=== PATIENT | male | born 1950 | race Caucasian/White ===

== ENCOUNTER 2020-07-15 05:15 | Observation (INO) ==
--- NOTE | 2020-06-12 10:52 | PAT Medication Instructions ---
Medication Instructions Date of Service June 12, 2020 Home Medications bupropion HCl 150 mg PO QAM hydrochlorothiazide 50 mg PO QAM ibuprofen 200 mg PO BID PRN levothyroxine 75 mcg PO QAM multivitamin 1 tab PO QAM omega-3 fatty acids [[place] 3 Fish Oil] 1,000 mg PO QAM simvastatin 40 mg PO HS tramadol 50 mg PO DAILY PRN vitamin B complex 1 tab PO QAM ASK your surgeon for instructions ibuprofen 200 mg PO BID PRN STOP taking 2 weeks before surgery (or as soon as possible if surgery is within 2 weeks) omega-3 fatty acids [[place] 3 Fish Oil] 1,000 mg PO QAM DO NOT take the morning of surgery hydrochlorothiazide 50 mg PO QAM multivitamin 1 tab PO QAM vitamin B complex 1 tab PO QAM Take morning of surgery With a small sip of water, OTHERWISE NOTHING TO EAT OR DRINK AFTER MIDNIGHT: bupropion HCl 150 mg PO QAM levothyroxine 75 mcg PO QAM tramadol 50 mg PO DAILY PRN (okay to take up to 4 hours prior to surgery if needed) Take evening before surgery simvastatin 40 mg PO HS tramadol 50 mg PO DAILY PRN (if needed) Other Notes If you have any questions please call us at [phone] or [phone] or [phone] or [phone]
--- NOTE | 2020-06-13 09:13 | Anesthesiology Consultation ---
Date of Service June 13, 2020 Assessment & Plan (1) Encounter for pre-operative examination: COVID screening: Per assessment on 06/13: Travel screen- Patient lived in [place] 04/2020-05/2020. Return from travel 06/02/20. No further travel planned prior to surgery. No known COVID-19 positive contacts or current COVID-19 related symptoms. Patient received first vaccine 06/04 (second scheduled 07/02). Surgeon arranging preop COVID testing (scheduled 07/08; [facility]). Awaiting results. Chart Review Chart Review: Acceptable Risk for Surgery and Patient seen in Pre Admission Testing Teaching & Discussion Pre-Anesthesia Teaching/Discussion Notes: Instructed NPO after midnight before surgery,except medications with 15 cc of water. Medication instructions provided according to the PAT guidelines. History Surgery Operation Date: 07/15/20 08:35 Proposed Procedures p Right Total Knee Arthroplasty - James Chavis DO Height/Weight Height: 5 ft 10 in Weight: 117.7 kg Allergies Allergy/AdvReac Type Severity Reaction Status Date / Time No Known Allergies Allergy Verified 06/11/20 15:06 Medications Home Medications Medication Instructions Recorded Confirmed Last Taken bupropion HCl 150 mg PO QAM 06/11/20 06/11/20 Unknown hydrochlorothiazide 12.5 mg PO QAM 06/11/20 06/13/20 Unknown ibuprofen 200 mg PO BID PRN 06/11/20 06/11/20 Unknown levothyroxine 75 mcg PO QAM 06/11/20 06/11/20 Unknown multivitamin 1 tab PO QAM 06/11/20 06/11/20 Unknown omega-3 fatty acids [[place] 3 Fish 1,000 mg PO QAM 06/11/20 06/11/20 Unknown Oil] simvastatin 40 mg PO HS 06/11/20 06/11/20 Unknown tramadol 50 mg PO DAILY PRN 06/11/20 06/11/20 Unknown vitamin B complex 1 tab PO QAM 06/11/20 06/11/20 Unknown Past Medical History Medical History Chronic back pain Degenerative disc disease Depression Edema of lower extremity on HCTZ Hypertension "borderline" > monitoring Hypothyroidism Obesity Osteoarthritis Pulmonary embolism B/L PE (~2012) s/p long travel > short-term coumadin, no problems since Sleep apnea CPAP Spondylolisthesis no current treatment Exercise / Class Metabolic Activity II 4-5 Yardwork/Stairs/Walk up hill Past Family History Family History Grandmother (Maternal) Family hx of colon cancer Other No family history of adverse response to anesthesia Past Surgical History Surgical History History of colonoscopy History of repair of rotator cuff R/L History of tonsillectomy S/P right knee arthroscopy Past Anesthesia History No Hx of Anesthesia Complications and No Family Hx of Anesthesia Complications History of PONV No Hx of PONV and Hx of Motion Sickness (very rare) Social History Smoking Status: Former smoker tobacco type: cigarettes Do You Dip or Chew Tobacco: No Smoking End Date: Quit 2012 Hx Alcohol Use: Yes Alcohol type: beer, wine and hard liquor alcohol intake frequency: a few times a week Hx Substance Use: Yes (CBD oil daily) Review of Systems Patient denies chest pain, shortness of breath, dyspnea on exertion, joint pain, reflux, cough, wheezing, palpitations. Physical Exam Vital Signs VITALS BP 124/76 P 53 TEMP 98.4 SP02 96%RA RESP 16 PHYSICAL Full neck and c-spine range of motion. Full TMJ range of motion. TMD 3 finger breaths Mallampati Score 3 Dentition: intact, +crowns (several) Lungs: clear throughout to auscultation Cardiac: regular rate and rhythm, no murmurs noted Spine: normal Carotid arteries: negative bruit Extremities: no edema Trimmed milligan Testing Laboratory Results 06/13/20 09:45 06/13/20 09:45 PT 10.3 Seconds (9.0-12.0) 06/13/20 09:45 INR 1.0 (0.9-1.1) 06/13/20 09:45 APTT 25.2 Seconds (21.0-31.0) 06/13/20 09:45 Hemoglobin A1c 6.4 % (4.5-5.6) H 06/13/20 09:45 Urine Color Yellow 06/13/20 09:45 Urine Appearance Clear (Clear) 06/13/20 09:45 Urine pH 5.0 (4.5-7.5) 06/13/20 09:45 Ur Specific [place] 1.019 (1.000-1.030) 06/13/20 09:45 Urine Protein Negative (Negative) 06/13/20 09:45 Urine Glucose (UA) Negative (Negative) 06/13/20 09:45 Urine Ketones Negative (Negative) 06/13/20 09:45 Urine Nitrite Negative (Negative) 06/13/20 09:45 Ur Leukocyte Esterase Negative (Negative) 06/13/20 09:45 Blood Type A Positive 06/13/20 09:45 Antibody Screen NEGATIVE 06/13/20 09:45 Electrocardiogram Date: 09/18/19 SB at 53bpm. NS TWA. Chest X-Ray Date: 06/13/20 FINDINGS: Cardiomediastinal and hilar silhouettes are within normal limits. No pneumothorax, pleural effusion, airspace consolidation or overt pulmonary edema. Mild right hemidiaphragmatic elevation. Bones of the chest appear grossly intact. IMPRESSION: No acute process.
--- NOTE | 2020-06-13 10:33 | XRay Report ---
XR chest Pre-admission PA/Lat HISTORY: 70 years-old Male pat preoperative exam. No acute chest complaints COMPARISON: None TECHNIQUE: PA and lateral views of the chest FINDINGS: Cardiomediastinal and hilar silhouettes are within normal limits. No pneumothorax, pleural effusion, airspace consolidation or overt pulmonary edema. Mild right hemidiaphragmatic elevation. Bones of the chest appear grossly intact. IMPRESSION: No acute process. ACT 112: Negative or not required by law. The above report was generated using voice recognition software. It may contain grammatical, syntax o r spelling errors. Electronically signed by: Leo Palomino M.D. 06/13/2020 10:31 AM
[2020-06-13 12:50] LABS: Basophils # (auto) 0.03 K/uL (0-0.2); Basophils % (auto) 0.5 %; Eosinophils # (auto) 0.12 K/uL (0-0.5); Eosinophils % (auto) 1.9 %; Hematocrit (blood only) 48.2 % (42-52); Hemoglobin 17.1 g/dL (14.0-18.0); Immature Granulocytes # (auto) 0.02 K/uL (0.00-0.02); Immature Granulocytes % (auto) 0.3 %; Lymphocytes # (auto) 2.53 K/uL (1.2-3.4); Lymphocytes % (auto) 40.2 %; Mean Corpuscular Hemoglobin 32.3 pg (25-34); Mean Corpuscular Hgb Conc 35.5 g/dL (32-36); Mean Corpuscular Volume 91.1 fL (80-100); Mean Platelet Volume 8.9 fL (7.4-10.4); Monocytes # (auto) 0.98 K/uL (0.11-0.59); Monocytes % (auto) 15.6 %; Neutrophils # (auto) 2.61 K/uL (1.4-6.5); Neutrophils % (auto) 41.5 %; Platelet Count 266 K/uL (130-400); RDW Coefficient of Variation 13.3 % (11.5-14.5); RDW Standard Deviation 44.3 fL (36.4-46.3); Red Blood Count 5.29 M/uL (4.7-6.1); White Blood Count 6.29 K/uL (4.8-10.8)
[2020-06-13 12:52] LABS: Appearance Urine Clear (Clear); Bilirubin Urine Negative (Negative); Blood Urine Negative (Negative); Color Urine Yellow; Glucose Urine UA Negative (Negative); Ketones Urine Negative (Negative); Leukocyte Esterase Urine Negative (Negative); Nitrite Urine Negative (Negative); Protein Urine Negative (Negative); Specific Gravity Urine 1.019 (1.000-1.030); Urobilinogen Urine Negative (Negative)
[2020-06-13 13:02] LABS: Partial Thromboplastin Time 25.2 Seconds (21.0-31.0); Prothrombin Time 10.3 Seconds (9.0-12.0)
[2020-06-13 13:10] LABS: Estimated Average Glucose 137 mg/dl; Hemoglobin A1C 6.4 % (4.5-5.6)
[2020-06-13 14:47] LABS: BUN Creatinine Ratio 13.5 (10-20); Creatinine Clr Calc Pharmacy 78.3 ml/min; Est GFR (African American) 74.6; Est GFR (Non-African American) 64.3
--- NOTE | 2020-06-30 08:22 | History & Physical Report ---
Date of Service June 30, 2020 date of surgery: 07/15/20 Procedure: Right Total Knee Arthroplasty Assessment & Plan (1) Arthritis of right knee: Further care discussed with patient and at this point in time has failed conservative measures and would like to proceed with a Right total knee r eplacement. Plan on discharge will be home with home health physical therapy. DVT prophalaxis with TEDs, SCDs and will also place on Xarelto x 1 month post op, has h/o bilateral PE in the past. Patient will have follow up appointment in our office two weeks post op for staple/suture removal and re-evaluation. Patient otherwise has no other questions or concerns. The risks and benefits have been discussed including, but not limited to, risk of infection, nerve injury, stiffness, loss of motion, failure to improve, etc. Reasonable outcomes and options of treatment were discussed. An explanation of appropriate alternatives to the procedure that may be advantageous were discussed and their risks and benefits, as well as the risks and benefits of not proceeding with treatment. I offered to answer any additional inquiries concerning the treatment involved. All the patient's questions were answered. The patient is agreeable, understanding of the treatment plan and alternatives, and wishes to proceed with the treatment plan. History of Present Illness Chief Complaint: Right knee pain Primary Care Provider: NO PCP Mr Grijalva is a 70 year old male who complains of right knee pain, presents for pre-op evaluation prior to a right total knee replacement by dr Chavis at [facility]. He complains of pain, decreased range of motion, instability and stiffness in his right knee. he states that the symptoms have been chronic and non- traumatic and states that the symptoms are moderate-severe. His pain is described as aching, sharp and throbbing. His symptoms are aggravated by ascending stairs, daily activities, first steps while awake walking. Prior NSAIDs include Aleve and Motrin, has also used Tramadol for pain relief. Nick underwent prior right knee scope, in 2016 he underwent Right knee arthroscopy with partial lateral meniscectomy, Chondroplasty lateral femoral condyle lateral tibial plateau patellofemoral. Allergies Allergy/AdvReac Type Severity Reaction Status Date / Time No Known Allergies Allergy Verified 06/11/20 15:06 Home Medications Medication Instructions Recorded Confirmed Type bupropion HCl 150 mg PO QAM 06/11/20 06/11/20 History hydrochlorothiazide 12.5 mg PO QAM 06/11/20 06/13/20 History ibuprofen 200 mg PO BID PRN 06/11/20 06/11/20 History levothyroxine 75 mcg PO QAM 06/11/20 06/11/20 History multivitamin 1 tab PO QAM 06/11/20 06/11/20 History omega-3 fatty acids [[place] 3 Fish 1,000 mg PO QAM 06/11/20 06/11/20 History Oil] simvastatin 40 mg PO HS 06/11/20 06/11/20 History tramadol 50 mg PO DAILY PRN 06/11/20 06/11/20 History vitamin B complex 1 tab PO QAM 06/11/20 06/11/20 History Past Med/Surg History Medical History Chronic back pain Degenerative disc disease Depression Edema of lower extremity on HCTZ Hypertension "borderline" > monitoring Hypothyroidism Obesity Osteoarthritis Pulmonary embolism B/L PE (~2012) s/p long travel > short-term coumadin, no problems since Sleep apnea CPAP Spondylolisthesis no current treatment Surgical History History of colonoscopy History of repair of rotator cuff R/L History of tonsillectomy S/P right knee arthroscopy Family History Grandmother (Maternal) Family hx of colon cancer Other No family history of adverse response to anesthesia Social History Smoking Status: Former smoker Smoking End Date: Quit 2012; Second Hand Exposure: No; Do You Dip or Chew Tobacco: No; Tobacco Cessation Education Requested by Patient: No Hx Alcohol Use: Yes Alcohol type: beer, wine and hard liquor Hx Substance Use: Yes (CBD oil daily) Preferred Language: Kazakh Communication Ability: Effective Cupola Operator Insulation Required: No Beliefs That Will Affect Care: None Current Living Situation: Spouse Other Information That Helps Us Care for You: No Feels Safe at Home: Yes Safety Concerns: Feels Safe At This Time Assistive Devices: Glasses Review of Systems Review of Systems: All systems reviewed & are unremarkable except as noted in HPI & below Constitutional: no fever, no chills and no sweats Respiratory: no cough and no dyspnea Cardiovascular: no chest pain, no dyspnea and no orthopnea Gastrointestinal: no abdominal pain, no nausea and no vomiting Musculoskeletal: as per Subjective / HPI Physical Exam Physical Exam: HT: 5ft 10in WT: 117.7kg BP: 128/78 Constitutional: WD/WN, vitals as above no acute distress Respiratory: normal respiratory effort, lungs clear to auscultation no respiratory distress, no labored breathing and does not use accessory muscles Cardiovascular: RRR, no murmur, no edema Gastrointestinal (Abdomen): normal bowel sounds, soft, nontender, no hepatosplenomegaly Musculoskeletal: Knee: + knee abnormal to inspection (Right Knee- ), + effusion (+1 effusion), + surgical incision (well healed portals), + limited ROM of knee (ROM 0/3/110), + knee ROM with crepitation, + joint line tenderness (medial joint line) and + Renetta's sign positive; no deformity, no skin erythema, no ecchymosis, no valgus laxity, no varus laxity, anterior drawer test negative, Lorene's sign negative and pivot shift test negative Results & Data Results & Data ([facility]) Laboratory Results Laboratory Results WBC 6.29 K/uL (4.8-10.8) 06/13/20 09:45 RBC 5.29 M/uL (4.7-6.1) 06/13/20 09:45 Hgb 17.1 g/dL (14.0-18.0) 06/13/20 09:45 Hct 48.2 % (42-52) 06/13/20 09:45 MCV 91.1 fL (80-100) 06/13/20 09:45 MCH 32.3 pg (25-34) 06/13/20 09:45 MCHC 35.5 g/dL (32-36) 06/13/20 09:45 RDW Std Deviation 44.3 fL (36.4-46.3) 06/13/20 09:45 RDW Coeff of Tia 13.3 % (11.5-14.5) 06/13/20 09:45 Plt Count 266 K/uL (130-400) 06/13/20 09:45 MPV 8.9 fL (7.4-10.4) 06/13/20 09:45 Immature Gran % (Auto) 0.3 % 06/13/20 09:45 Neut % (Auto) 41.5 % 06/13/20 09:45 Lymph % (Auto) 40.2 % 06/13/20 09:45 [place] % (Auto) 15.6 % 06/13/20 09:45 Eos % (Auto) 1.9 % 06/13/20 09:45 Baso % (Auto) 0.5 % 06/13/20 09:45 Neut # (Auto) 2.61 K/uL (1.4-6.5) 06/13/20 09:45 Lymph # (Auto) 2.53 K/uL (1.2-3.4) 06/13/20 09:45 [place] # (Auto) 0.98 K/uL (0.11-0.59) H 06/13/20 09:45 Eos # (Auto) 0.12 K/uL (0-0.5) 06/13/20 09:45 Baso # (Auto) 0.03 K/uL (0-0.2) 06/13/20 09:45 Immature Gran # (Auto) 0.02 K/uL (0.00-0.02) 06/13/20 09:45 PT 10.3 Seconds (9.0-12.0) 06/13/20 09:45 INR 1.0 (0.9-1.1) 06/13/20 09:45 APTT 25.2 Seconds (21.0-31.0) 06/13/20 09:45 PTT Ratio 1.0 06/13/20 09:45 Sodium 137 mmol/L (136-145) 06/13/20 09:45 Potassium 4.0 mmol/L (3.5-5.1) 06/13/20 09:45 Chloride 104 mmol/L (98-107) 06/13/20 09:45 Carbon Dioxide 29 mmol/L (21-32) 06/13/20 09:45 Anion Gap 4.0 (3-11) 06/13/20 09:45 BUN 16 mg/dl (7-18) 06/13/20 09:45 Creatinine 1.16 mg/dl (0.6-1.4) 06/13/20 09:45 Est Cr Clr Drug Dosing 78.3 ml/min 06/13/20 09:45 Est GFR ( Amer) 74.6 06/13/20 09:45 Est GFR (Non-Af Amer) 64.3 06/13/20 09:45 BUN/Creatinine Ratio 13.5 (10-20) 06/13/20 09:45 Glucose 81 mg/dl (70-99) 06/13/20 09:45 Estimat Average Glucose 137 mg/dl 06/13/20 09:45 Hemoglobin A1c 6.4 % (4.5-5.6) H 06/13/20 09:45 Calcium 10.0 mg/dl (8.5-10.1) 06/13/20 09:45 Albumin 4.0 gm/dl (3.4-5.0) 06/13/20 09:45 Urine Color Yellow 06/13/20 09:45 Urine Appearance Clear (Clear) 06/13/20 09:45 Urine pH 5.0 (4.5-7.5) 06/13/20 09:45 Ur Specific [place] 1.019 (1.000-1.030) 06/13/20 09:45 Urine Protein Negative (Negative) 06/13/20 09:45 Urine Glucose (UA) Negative (Negative) 06/13/20 09:45 Urine Ketones Negative (Negative) 06/13/20 09:45 Urine Blood Negative (Negative) 06/13/20 09:45 Urine Nitrite Negative (Negative) 06/13/20 09:45 Urine Bilirubin Negative (Negative) 06/13/20 09:45 Urine Urobilinogen Negative (Negative) 06/13/20 09:45 Ur Leukocyte Esterase Negative (Negative) 06/13/20 09:45 Blood Type A Positive 06/13/20 09:45 Antibody Screen NEGATIVE 06/13/20 09:45 Diagnostic Findings Right Knee X-ray: Right knee series showing degenerative changes to the right knee, narrowing of the lateral compartment and patello-femoral joint with patellar spurring noted, findings showing joint space narrowing of the medial compartment and patello- femoral joint, osteophyte formation and subchondral sclerosis noted. overall valgus alignment. no acute bony pathology noted.
[2020-07-15] MEDS ORDERED: LR 500ML BOLUS, THEN 15ML/HR IV SCH (06:00)
[2020-07-15] MEDS ORDERED: METOCLOPRAMIDE HCL 10 MG TABLET PO SCH (06:00)
[2020-07-15] MEDS ORDERED: FAMOTIDINE 20 MG TAB PO SCH (06:00)
[2020-07-15] MEDS ORDERED: ROPIVACAINE 0.5% HCL/PF 150 MG, BUPIVACAINE 0.75% MPF 20 ML, EPINEPHrine 30MG/30ML (OR ... INSTIL SCH (06:00)
[2020-07-15] MEDS ORDERED: TRANEXAMIC ACID 1,000 MG **IV Intra-op IV SCH (06:00)
[2020-07-15] MEDS ORDERED: ceFAZolin 2000MG 2,000 MG/15 ML SYR IV SCH (06:00)
[2020-07-15] MEDS ORDERED: ACETAMINOPHEN 500 MG TAB PO SCH (06:00)
[2020-07-15] MEDS ORDERED: CeleBREX 200 MG CAP PO SCH (06:00)
[2020-07-15] MEDS ORDERED: oxyCODONE HCL 10 MG TABCR (OxyCONTIN) PO SCH (06:00)
[2020-07-15] MEDS ORDERED: TRANEXAMIC ACID 1,000 MG **IV Pre-op IV SCH (06:00)
[2020-07-15] MEDS ORDERED: GABAPENTIN 300 MG CAP PO SCH (06:00)
[2020-07-15] MEDS ORDERED: BUPIVACAINE 0.5 % 5 MG/1 ML PF 10ML VIAL ONE (06:15)
[2020-07-15] MEDS ORDERED: BUPIVACAINE 0.25% 30 ML VIAL ONE (06:16)
[2020-07-15] MEDS ORDERED: LIDOCAINE HCL 2% 2 ML VIAL/AMP(20MG/ML) INFIL ONE (06:48)
[2020-07-15] MEDS ORDERED: PROPOFOL IV EMULSION 10 MG/ML 20 ML VIAL IV ONE (06:48)
[2020-07-15] MEDS ORDERED: MIDAZOLAM HCL 1 MG/ML 2ML VIAL ONE ×3 (06:49→08:36)
[2020-07-15] MEDS ORDERED: fentaNYL citrate 100 MCG/2 ML VIAL ONE (06:54)
[2020-07-15] MEDS ORDERED: BACITRACIN INJ 50,000 UNIT VIAL ONE (06:57)
[2020-07-15] MEDS ORDERED: ORTHO JOINT ANESTHETIC ONE (06:57)
[2020-07-15] MEDS ORDERED: ONDANSETRON INJ 2 MG/ML 2 ML VIAL IV PRN ×2 (07:03→10:10)
[2020-07-15] MEDS ORDERED: fentaNYL citrate 100 MCG/2 ML VIAL IV PRN (07:03)
[2020-07-15] MEDS ORDERED: ATROPINE SULFATE 0.1 MG/ML 10ML SYR IV PRN (07:03)
[2020-07-15] MEDS ORDERED: ePHEDrine sulfate 50 MG/ML AMP IV PRN (07:03)
--- NOTE | 2020-07-15 07:15 | History & Physical Bridge Note ---
Date of Service July 15, 2020 History & Physical Bridge Note I have examined the patient, reviewed the History & Physical and in the interval since the performance of the History & Physical I have noted the following changes of clinical significance: no changes noted
[2020-07-15] MEDS ORDERED: KETAMINE 50 MG/5 ML SYRINGE ONE (07:50)
--- NOTE | 2020-07-15 08:35 | Operative Report ---
Post Operative Report Pre & Post Diagnosis Operation Date: 07/15/20 07:15 Pre-Op Diagnosis: Osteoarthritis Knee Right Post-Op Diagnosis: Osteoarthritis Knee Right I identified the patient and participated in the time-out.: Yes Procedure Operation Date: 07/15/20 07:15 Actual Procedures p Right Total Knee Arthroplasty(Right) utilizing [employer] journey 2 patient matched total knee arthroplasty size 6 femur 5 tibia 13 polyethylene 35 oval patella- James Chavis DO Surgeon James Chavis DO Dye Stand Loader Gentry LANG Estimated Blood Loss 5 Findings Consistent with Post-Op Diagnosis Patient presents with severe end-stage tricompartmental degenerative joint disease [id number] eburnated bone subchondral sclerosis marginal osteophytes moderate to large effusion Specimens Bone and cartilage Drains Medium bore Hemovac Anesthesia Type MAC Spinal Regional Complications none Disposition Accompanied Patient To Recovery: No Disposition: Recovery Room Indications Patient presents after failed attempted conservative management clinic physical therapy anti-inflammatories relative rest activity modification corticosteroid injection Visco supplementation patient has with severe end-stage right knee DJD with the above intraoperative findings noted Description of Procedure After proper prepping and draping of the Right lower extremity anterior midline incision was made over the region of the extensor extensor mechanism after meticulous hemostasis was obtained and maintained in subcutaneous tissues a medial parapatellar incision was made The patella was subluxed lateralward the medial lateral gutter were cleaned from any hypertrophic synovitis and scar tissue of the distal femoral block was placed and the distal femoral osteotomy cut was made subsequently the chamfers anterior and posterior osteotomy cuts were made utilizing the 4-in-1 block the tibia was subsequently subluxed anteriorward medial and ateral meniscal remnants were excised in their entirety remnants of the anterior and posterior cruciate ligaments were excised in their entirety excellent exposure of the proximal tibia was obtained the tibial osteotomy guide was placed on the proximal tibial osteotomy cut was made once again the knee was irrigated with copious amounts of sterile saline solution the patella was subsequently everted lateralward thickened scar tissue around the patella was removed the patella was subsequently cut utilizing a freehand technique and was drilled prepared for final preparation and placement of patella socially flexion-extension gaps were checked and the equal and symmetric trials were placed to the appropriate femoral and tibial trials with poly-spacer being placed for equal flexion and extension gaps and full range of motion including extension to 0 and flexion to 140 the trial components after having been taken to recovery range of motion was subsequently removed meticulous hemostasis was obtained and maintained subsequently a knee block injection of joint cocktail including ropivacaine 0.5% 150 mg. Bupivacaine 0.5% epinephrine 1-200,030 mL's toradol 30 mg dexamethasone 4 mg ketamine 10 mg clonidine 100 micrograms normal saline solution 30 mg was infiltrated into the soft tissues of the posterior knee medial lateral gutters and periosteal synovium special attention was paid to protect neurovascular structures at all times subsequently trial components having been removed the knee was irrigated with sterile saline solution. debris was removed the proximal tibia was subsequently prepared and was made ready for the placement of the tibial component tibial component was also cemented and tamped into position the femoral component was subsequently placed and cemented in the position the patellar component was subsequently cemented in position because hemostasis once again obtained and maintained wound having been thoroughly irrigated with debridement and debridement lavage was performed as well as a medial parapatellar incision closed with #1 Vicryl in interrupted fashion subcutaneous was closed with #2 Vicryl skin was closed with skin clips. PA-C was necessary for prepping and drapping as well as wound closure of deep fascia Sub cutaneous tissue and skin and was necessary for the case. A sterile compressive dressing was placed patient was taken to recovery in stable condition of report dictated by Partha I attest to the content of the Intraoperative Record and any orders documented therein. Any exceptions are noted below. I attest to the content of the Intraoperative Record and any orders documented therein. Any exceptions are noted below.
--- NOTE | 2020-07-15 09:36 | XRay Report ---
TWO VIEWS RIGHT KNEE CLINICAL HISTORY: Postoperative examination. FINDINGS: AP and crosstable lateral portable views of the right knee are obtained. A right knee arthr oplasty is in near anatomic alignment. There has been undersurface remodeling of the patella. No acut e fracture is seen. There are expected postoperative changes around the knee including skin clips, a surgical drain, soft tissue edema, and subcutaneous gas. IMPRESSION: Expected postoperative changes status post right knee arthroplasty. No acute fracture is seen. ACT 112: Negative or not required by law. Electronically signed by: Arcadio Sequeira M.D. 07/15/2020 9:34 AM
[2020-07-15] MEDS ORDERED: HYDROmorphone INJ 1 MG/ML SYRINGE IV PRN (10:10)
[2020-07-15] MEDS ORDERED: NALOXONE HCL 0.4 MG/1 ML VIAL/CARP IV PRN (10:10)
[2020-07-15] MEDS ORDERED: METOCLOPRAMIDE HCL INJ 5 MG/ML 2 ML VIAL IV PRN (10:10)
[2020-07-15] MEDS ORDERED: diphenhydrAMINE Capsule 25 MG CAP PO PRN (10:10)
[2020-07-15] MEDS ORDERED: MAGNESIUM HYDROXIDE SUSP 30 ML UDC PO PRN (10:10)
[2020-07-15] MEDS ORDERED: bisacodyL 10 MG SUPP PR PRN (10:10)
[2020-07-15] MEDS: KETOROLAC TROMETHAMINE 15 MG/ML VIAL IV SCH ×3 (11:05→23:11)
[2020-07-15] MEDS: SODIUM CHLORIDE 0.9% 1000ML 1,000 ML IV SCH ×2 (11:05→23:12)
[2020-07-15] MEDS: VITAMIN B COMPLEX TAB PO SCH (12:31)
[2020-07-15] MEDS: LEVOTHYROXINE SODIUM 88 MCG TABLET PO SCH (12:31)
[2020-07-15] MEDS: MULTIVITAMIN TAB PO SCH (12:31)
[2020-07-15] MEDS: DOCUSATE SODIUM 100 MG CAP PO SCH ×2 (12:31→20:15)
[2020-07-15] MEDS: buPROPion XL 150 MG TABCR PO SCH (12:32)
--- NOTE | 2020-07-15 13:32 | Hospitalist Consultation ---
Date of Consultation July 15, 2020 Assessment & Plan (1) Arthritis of right knee: S/p right TKA with Dr. Chavis on 07/15/2020. - Post-operative care per primary team - Higher risk for DVT, agree with early DVT ppx - At risk for acute blood loss anemia -> Will consider IV iron if needed (2) Hypertension: Presently 120/70. - Continue home HCTZ - Monitor (3) Pulmonary embolism: Per notes in 2013 with short duration anticoagulation. - DVT ppx per primary team - Would send home with DVT ppx as post-operative risk is probably higher than average (4) Hypothyroidism: No signs/symptoms of hypo-/hyperthyroidism. - Continue home Synthroid 88 mcg (5) Sleep apnea: - Encourage home CPAP. (6) Depression: - Continue home Wellbutrin (7) Hyperlipidemia: - Continue home simvastatin (8) DVT prophylaxis: Xarelto per primary team History of Present Illness Attending Physician: James Chavis, History of Present Illness 70yo M w/ hx of HTN who presents after a right TKA with Dr. Chavis on 07/15/2020. Patient is in no acute distress. Had been having worsening right knee pain that was not improved with conservative measures. Presently without much pain though his knee block has worn off. The pain is largely above the knee (posterior) than in the knee itself. Allergies Allergy/AdvReac Type Severity Reaction Status Date / Time No Known Allergies Allergy Verified 07/15/20 05:40 Home Medications Medication Instructions Recorded Confirmed Type bupropion HCl 150 mg PO QAM 06/11/20 07/15/20 History hydrochlorothiazide 12.5 mg PO QAM 06/11/20 07/15/20 History ibuprofen 200 mg PO BID PRN 06/11/20 07/15/20 History levothyroxine 88 mcg PO QAM 06/11/20 07/15/20 History multivitamin 1 tab PO QAM 06/11/20 07/15/20 History omega-3 fatty acids [[place] 3 Fish 1,000 mg PO QAM 06/11/20 07/15/20 History Oil] simvastatin 40 mg PO HS 06/11/20 07/15/20 History tramadol 50 mg PO DAILY PRN 06/11/20 07/15/20 History vitamin B complex 1 tab PO QAM 03/10/21 04/13/21 History acetaminophen [Tylenol] 650 mg PO QID PRN 07/15/20 07/15/20 History Patient History Medical History (Updated 07/15/20 @ 13:31 by Marino Membreno MD) Chronic back pain Degenerative disc disease Depression Edema of lower extremity on HCTZ Hypertension "borderline" > monitoring Hypothyroidism Obesity Osteoarthritis Pulmonary embolism B/L PE (~2012) s/p long travel > short-term coumadin, no problems since Sleep apnea CPAP Spondylolisthesis no current treatment Surgical History History of colonoscopy History of repair of rotator cuff R/L History of tonsillectomy S/P right knee arthroscopy Family History Grandmother (Maternal) Family hx of colon cancer Other No family history of adverse response to anesthesia Social History Smoking Status: Former smoker Smoking End Date: Quit 2012; Second Hand Exposure: No; Do You Dip or Chew Tobacco: No; Tobacco Cessation Education Requested by Patient: No Hx Alcohol Use: Yes Alcohol type: beer, wine and hard liquor Hx Substance Use: Yes (CBD oil daily) Preferred Language: Citizen Of [place] Communication Ability: Effective Bench Manager Required: No Beliefs That Will Affect Care: None Current Living Situation: Spouse Other Information That Helps Us Care for You: No Feels Safe at Home: Yes Safety Concerns: Feels Safe At This Time Assistive Devices: Glasses Review of Systems Review of Systems: All systems reviewed & are unremarkable except as noted in HPI & below Physical Exam Constitutional: WD/WN, vitals as above Eyes: EOM intact bilaterally; no conjunctival abnormality ENMT: external ear and nose normal, oropharynx normal Neck: trachea midline, no thyromegaly normal visual inspection Respiratory: normal respiratory effort, lungs clear to auscultation no respiratory distress Cardiovascular: RRR, no murmur, no edema Gastrointestinal (Abdomen): Inspection/Auscultation: abdomen normal to inspection; abdomen not distended Musculoskeletal: no cyanosis or clubbing, extremities motor strength 5/5 Knee: + knee abnormal to inspection (Right knee bandaged) and + surgical drain present Skin: no rashes, warm and dry Neurologic: moves all extremities and awake Psychiatric: Orientation: alert, oriented to person and cooperative Results & Data Results & Data ([facility]) Vital Signs (Past 12 Hours) Vital Signs Temp Pulse Pulse Pulse Pulse Resp BP 07/15/20 13:00 54 L 16 07/15/20 12:06 54 L 16 07/15/20 11:01 36.4 C L 52 L 16 07/15/20 10:22 36.3 C L 58 L 16 07/15/20 09:55 36.4 C L 50 L 16 07/15/20 09:40 36.5 C 57 L 12 07/15/20 09:30 45 L 14 07/15/20 09:20 58 L 17 07/15/20 09:12 37.3 C 60 12 07/15/20 05:31 36.8 C 57 L 18 149/82 H BP Pulse Ox 07/15/20 13:00 122/71 93 07/15/20 12:06 96/54 L 95 07/15/20 11:01 100/60 93 07/15/20 10:22 105/65 94 07/15/20 09:55 104/63 95 07/15/20 09:40 103/61 92 07/15/20 09:30 101/61 95 07/15/20 09:20 104/62 96 07/15/20 09:12 109/61 96 07/15/20 05:31 96 PG Care Time/CCT Total # of Minutes Spent Total Time Spent with Patient: Total time spent is greater than 50% in coordination of care (as documented) at patient's floor/unit and/or counseling patient: Coding Level of Care Code 65971 Office/OBS Consult Lvl 4 Diagnoses Arthritis of right knee M17.11 Hypertension I10 Pulmonary embolism I26.99 Hypothyroidism E03.9 Sleep apnea G47.30 Depression F32.9 Hyperlipidemia E78.5 DVT prophylaxis Z29.9
[2020-07-15] MEDS: ACETAMINOPHEN 500 MG TAB PO SCH ×2 (14:04→21:05)
[2020-07-15] MEDS: oxyCODONE HCL IR 5 MG TAB (IMMEDIATE RELEASE) PO PRN ×2 (14:05→19:46)
--- NOTE | 2020-07-15 14:26 | Anesthesiology Progress Note ---
Date of Service July 15, 2020 Anesthesia Post Procedure Vital Signs Vital Signs: Temp Pulse Pulse Pulse Pulse Resp BP 07/15/20 13:00 54 L 16 07/15/20 12:06 54 L 16 07/15/20 11:01 36.4 C L 52 L 16 07/15/20 10:22 36.3 C L 58 L 16 07/15/20 09:55 36.4 C L 50 L 16 07/15/20 09:40 36.5 C 57 L 12 07/15/20 09:30 45 L 14 07/15/20 09:20 58 L 17 07/15/20 09:12 37.3 C 60 12 07/15/20 05:31 36.8 C 57 L 18 149/82 H BP Pulse Ox 07/15/20 13:00 122/71 93 07/15/20 12:06 96/54 L 95 07/15/20 11:01 100/60 93 07/15/20 10:22 105/65 94 07/15/20 09:55 104/63 95 07/15/20 09:40 103/61 92 07/15/20 09:30 101/61 95 07/15/20 09:20 104/62 96 07/15/20 09:12 109/61 96 07/15/20 05:31 96 Pain Intensity Right Knee: Pain Intensity: 0 Transfer of Care Handoff Completed per policy Notes Mental Status: alert / awake / arousable and participated in evaluation Patient Amnestic to Procedure: Yes Nausea / Vomiting: adequately controlled Pain: adequately controlled Airway Patency, RR, SpO2: stable & adequate BP & HR: stable & adequate Hydration State: stable & adequate Neuraxial Anesthesia: was administered and sensory block is resolving Anesthetic Complications: no major complications apparent and Pt Satisfied with anesthetic care
[2020-07-15] MEDS: ceFAZolin 2000MG 2,000 MG/15 ML SYR IV SCH ×2 (17:04→23:11)
[2020-07-15] MEDS ORDERED: SENNA 8.6 MG TAB PO SCH (21:00)
[2020-07-15] MEDS ORDERED: SIMVASTATIN 40 MG TAB PO SCH (21:00)
[2020-07-16] MEDS: oxyCODONE HCL IR 5 MG TAB (IMMEDIATE RELEASE) PO PRN ×2 (04:51→11:24)
[2020-07-16] MEDS: KETOROLAC TROMETHAMINE 15 MG/ML VIAL IV SCH (05:36)
[2020-07-16] MEDS: ACETAMINOPHEN 500 MG TAB PO SCH (05:37)
[2020-07-16] MEDS: LEVOTHYROXINE SODIUM 88 MCG TABLET PO SCH (05:38)
[2020-07-16 06:36] LABS: Hematocrit (blood only) 37.5 % (42-52); Hemoglobin 13.2 g/dL (14.0-18.0); Mean Corpuscular Hemoglobin 32.3 pg (25-34); Mean Corpuscular Hgb Conc 35.2 g/dL (32-36); Mean Corpuscular Volume 91.7 fL (80-100); Mean Platelet Volume 8.4 fL (7.4-10.4); Platelet Count 172 K/uL (130-400); RDW Coefficient of Variation 13.2 % (11.5-14.5); RDW Standard Deviation 43.9 fL (36.4-46.3); Red Blood Count 4.09 M/uL (4.7-6.1); White Blood Count 11.38 K/uL (4.8-10.8)
[2020-07-16 07:03] LABS: BUN Creatinine Ratio 22.4 (10-20); Calcium 8.4 mg/dl (8.5-10.1); Creatinine Clr Calc Pharmacy 98.3 ml/min; Est GFR (African American) 98.7; Est GFR (Non-African American) 85.2; Potassium 4.3 mmol/L (3.5-5.1)
[2020-07-16] MEDS: VITAMIN B COMPLEX TAB PO SCH (07:38)
[2020-07-16] MEDS: buPROPion XL 150 MG TABCR PO SCH (07:39)
[2020-07-16] MEDS: DOCUSATE SODIUM 100 MG CAP PO SCH (07:39)
[2020-07-16] MEDS: MULTIVITAMIN TAB PO SCH (07:40)
[2020-07-16] MEDS ORDERED: RIVAROXABAN 10 MG TABLET PO SCH (09:00)
[2020-07-16] MEDS ORDERED: hydroCHLOROthiazide 25 MG TAB PO SCH (09:00)
--- NOTE | 2020-07-16 10:13 | Orthopedic Progress Note ---
Date of Service July 16, 2020 Assessment & Plan (1) Arthritis of right knee: Postop day 1 status post right total knee arthroplasty PT/OT protocols. Weightbearing as tolerated. DVT prophylaxis-rivaroxaban, SCDs, BRENNAN hose. Pain management as written. DC planning-patient is planning for home health services upon discharge. Admission and Anticipated Discharge Date Admission Date: July 15, 2020 Subjective Postop day 1 Patient is currently sitting up in his bed awake and alert. No complaints this morning. Pain is controlled. Denies shortness of breath, chest pain, lightheadedness. Physical Exam Physical Exam: Dressings are clean, dry, and intact. Calves are soft nontender. Neurovascular intact. Toes are mobile. He has good dorsiflexion and plantarflexion of the right foot. Hemovac drainage was 100 mL from the previous shift. Results & Data ([facility]) Vital Signs (Past 12 Hours) Vital Signs Temp Pulse Resp BP Pulse Ox 07/16/20 07:55 36.6 C 53 L 18 111/65 96 07/16/20 04:08 36.6 C 50 L 18 121/74 99 07/15/20 23:34 36.5 C 51 L 20 127/70 97 Laboratory Results Laboratory Results WBC 11.38 K/uL (4.8-10.8) H 07/16/20 06:25 RBC 4.09 M/uL (4.7-6.1) L 07/16/20 06:25 Hgb 13.2 g/dL (14.0-18.0) L 07/16/20 06:25 Hct 37.5 % (42-52) L 07/16/20 06:25 MCV 91.7 fL (80-100) 07/16/20 06:25 MCH 32.3 pg (25-34) 07/16/20 06:25 MCHC 35.2 g/dL (32-36) 07/16/20 06:25 RDW Std Deviation 43.9 fL (36.4-46.3) 07/16/20 06:25 RDW Coeff of Tia 13.2 % (11.5-14.5) 07/16/20 06:25 Plt Count 172 K/uL (130-400) 07/16/20 06:25 MPV 8.4 fL (7.4-10.4) 07/16/20 06:25 Immature Gran % (Auto) 0.3 % 06/13/20 09:45 Neut % (Auto) 41.5 % 06/13/20 09:45 Lymph % (Auto) 40.2 % 06/13/20 09:45 Butts % (Auto) 15.6 % 06/13/20 09:45 Eos % (Auto) 1.9 % 06/13/20 09:45 Baso % (Auto) 0.5 % 06/13/20 09:45 Neut # (Auto) 2.61 K/uL (1.4-6.5) 06/13/20 09:45 Lymph # (Auto) 2.53 K/uL (1.2-3.4) 06/13/20 09:45 Butts # (Auto) 0.98 K/uL (0.11-0.59) H 06/13/20 09:45 Eos # (Auto) 0.12 K/uL (0-0.5) 06/13/20 09:45 Baso # (Auto) 0.03 K/uL (0-0.2) 06/13/20 09:45 Immature Gran # (Auto) 0.02 K/uL (0.00-0.02) 06/13/20 09:45 PT 10.3 Seconds (9.0-12.0) 06/13/20 09:45 INR 1.0 (0.9-1.1) 06/13/20 09:45 APTT 25.2 Seconds (21.0-31.0) 06/13/20 09:45 PTT Ratio 1.0 06/13/20 09:45 Sodium 139 mmol/L (136-145) 07/16/20 06:25 Potassium 4.3 mmol/L (3.5-5.1) 07/16/20 06:25 Chloride 107 mmol/L (98-107) 07/16/20 06:25 Carbon Dioxide 27 mmol/L (21-32) 07/16/20 06:25 Anion Gap 5.0 (3-11) 07/16/20 06:25 BUN 21 mg/dl (7-18) H 07/16/20 06:25 Creatinine 0.92 mg/dl (0.6-1.4) 07/16/20 06:25 Est Cr Clr Drug Dosing 98.3 ml/min 07/16/20 06:25 Est GFR ( Amer) 98.7 07/16/20 06:25 Est GFR (Non-Af Amer) 85.2 07/16/20 06:25 BUN/Creatinine Ratio 22.4 (10-20) H 07/16/20 06:25 Glucose 117 mg/dl (70-99) H 07/16/20 06:25 Estimat Average Glucose 137 mg/dl 06/13/20 09:45 Hemoglobin A1c 6.4 % (4.5-5.6) H 06/13/20 09:45 Calcium 8.4 mg/dl (8.5-10.1) L 07/16/20 06:25 Albumin 4.0 gm/dl (3.4-5.0) 06/13/20 09:45 Urine Color Yellow 06/13/20 09:45 Urine Appearance Clear (Clear) 06/13/20 09:45 Urine pH 5.0 (4.5-7.5) 06/13/20 09:45 Ur Specific Brent 1.019 (1.000-1.030) 06/13/20 09:45 Urine Protein Negative (Negative) 06/13/20 09:45 Urine Glucose (UA) Negative (Negative) 06/13/20 09:45 Urine Ketones Negative (Negative) 06/13/20 09:45 Urine Blood Negative (Negative) 06/13/20 09:45 Urine Nitrite Negative (Negative) 06/13/20 09:45 Urine Bilirubin Negative (Negative) 06/13/20 09:45 Urine Urobilinogen Negative (Negative) 06/13/20 09:45 Ur Leukocyte Esterase Negative (Negative) 06/13/20 09:45 Blood Type A Positive 06/13/20 09:45 Antibody Screen NEGATIVE 06/13/20 09:45 Impressions Knee X-Ray 07/15/20 09:15 TWO VIEWS RIGHT KNEE CLINICAL HISTORY: Postoperative examination. FINDINGS: AP and crosstable lateral portable views of the right knee are obtained. A right knee arthroplasty is in near anatomic alignment. There has been undersurface remodeling of the patella. No acute fracture is seen. There are expected postoperative changes around the knee including skin clips, a surgical drain, soft tissue edema, and subcutaneous gas. IMPRESSION: Expected postoperative changes status post right knee arthroplasty. No acute fracture is seen. ACT 112: Negative or not required by law. Electronically signed by: Arcadio Sequeira M.D. 07/15/2020 9:34 AM
[2020-07-16] MEDS ORDERED: KETOROLAC TROMETHAMINE 15 MG/ML VIAL IV ONE (11:15)
--- NOTE | 2020-07-16 18:28 | Discharge Summary ---
Date of Service date of discharge: July 16, 2020 Date of Admission: 07-15-20 Admission HPI Per Admitting Provider Mr Grijavla is a 70 year old male who complains of right knee pain, presents for pre-op evaluation prior to a right total knee replacement by dr Chavis at [facility]. He complains of pain, decreased range of motion, instability and stiffness in his right knee. he states that the symptoms have been chronic and non- traumatic and states that the symptoms are moderate-severe. His pain is described as aching, sharp and throbbing. His symptoms are aggravated by ascending stairs, daily activities, first steps while awake walking. Prior NSAIDs include Aleve and Motrin, has also used Tramadol for pain relief. Nick underwent prior right knee scope, in 2015 he underwent Right knee arthroscopy with partial lateral meniscectomy, Chondroplasty lateral femoral condyle lateral tibial plateau patellofemoral. Principal Diagnosis right knee arthritis Discharge Exam Vital Signs Temp 36.6 C 07/16/20 10:29 Pulse 57 L 07/16/20 10:29 Resp 18 07/16/20 10:29 BP 111/65 07/16/20 10:29 Pulse Ox 96 07/16/20 10:29 Intake & Output 07/15/20 07/16/20 07/16/20 18:59 06:59 18:59 Intake Total 1640 / 3590 1950 / 3590 Output Total 285 / 735 450 / 735 Balance 1355 / 2855 1500 / 2855 Weight 116.5 kg 116.5 kg Intake: IV 700 / 1800 1100 / 1800 Lr 1,000 ml @ 15 mls/hr IV . 600 / 600 Q24H GEMMA Rx#:[id number] Nss 1000ML 1,000 ml @ 100 mls/ 1000 / 1000 hr IV .Q10H GEMMA Rx#:[id number] TRANEXAMIC ACID / 0.7% NACL 1, 100 / 200 100 / 200 000 mg In 100 ml @ 600 mls/hr IV TODAY@0600 GEMMA Rx#:[id number] IV Perioperative 700 / 700 Oral 240 / 1090 850 / 1090 Output: Urine 200 / 375 175 / 375 Estimated Blood Loss 5 / 5 Drain Output 80 / 355 275 / 355 Right Knee Hemovac 80 / 355 275 / 355 Other: # Unmeasured Voids 1 Constitutional WD/WN, vitals as above Musculoskeletal right knee: NVDI, calf SNT, negative niko sign. DP palpable, able to wiggle toes/ankle movement without difficulty. RENETTA dressing clean dry and intact. expected post-operative bruising noted. Discharge Data Allergies Allergy/AdvReac Type Severity Reaction Status Date / Time No Known Allergies Allergy Verified 07/15/20 05:40 Consultations 07/10/20 13:37 Consult Hospitalist Routine Procedures Performed Operation Date: 07/15/20 07:15 Actual Procedures p Right Total Knee Arthroplasty(Right) - James Chavis DO Ordered Studies 07/15/20 05:00 US - OR guided needle placemen Routine Hospital Course (1) Arthritis of right knee: Postop day 1 status post right total knee arthroplasty PT/OT protocols. Weightbearing as tolerated. DVT prophylaxis-rivaroxaban, SCDs, BRENNAN hose. Pain management as written. DC planning-patient is planning for home health services upon discharge. Total Time Total Time Spent Total Time Spent (In Minutes): 20 Discharge Plan Discharge Items Patient Disposition: Home - Home Health Services Reason For Visit: Osteoarthritis Knee Right Discharge Diagnosis: Right total knee arthroplasty Activity: Per Instructions section Lifting: Wait until after follow-up appointment Weightbearing: Right weightbearing Weightbearing Comment: WBAT with walker Non-emergency contact: Surgeon Call non-emergency contact if: you have any medication questions, your pain is not controlled, your temperature is above 101, your wound has increased redness, your wound has increased drainage and your wound pain has increased Follow-up/Referrals: James Fernandez M.D. [Primary Care Provider] - Diet: Regular Addtl Attending Provider Instructions: ACTIVITY RECOMMENDATIONS: SELF CARE INSTRUCTIONS AFTER TOTAL KNEE REPLACEMENT A. You may need to continue a physical therapy program after discharge from the hospital. There are several options available to you. Your doctor will assist you in selecting the best one for you. 1. An out-patient facility 2 to 3 times a week for therapy or home therapy. 2. Continue working on all exercises taught to you in the hospital. Your goals should be to increase bending of your knee to 90 degrees and beyond and to fully straighten your knee. B. You may progress at your own pace from walking with a walker or crutches to a cane; then to no assistive devices. C. Make walking a part of your daily routine. Be up as much as comfortable with rest periods throughout the day. Rest with leg elevation is very important. Use the ice wrap frequently for the first 3-4 weeks. D. There are no restrictions on activities. You may ride in a car, shop, participate in heel lift gouger and all social activities. E. Wear the long elastic stockings (BRENNAN hose) 20 hours a day for 2 weeks after surgery. They can be removed several times a day for laundering and for a bath. F. You may shower, no tub baths until cleared by your doctor. SPECIAL CARE INSTRUCTIONS: VERY IMPORTANT TO READ AND REVIEW A. There are a few signs you need to watch for after you are home. Call [facility] if you notice any of the followin. Increased severe knee pain. Some pain is expected especially when you exercise. 2. Increased swelling in your leg or knee; pain or swelling of the calf muscle in either lower leg. 3. Any fluid drainage from the incision. 4. Shortness of breath or chest pain. B. Please call [facility] at if you have any concerns or questions about your operation or recovery. The doctor or his nurse will return your call promptly. C. You must take antibiotics before dental work, bladder, bowel or other surgery. Your doctor will provide you with a permanent care to carry describing this precaution. IMPORTANT: * REMEMBER TO TAKE ASPIRIN, 81 MG, TWICE DAILY FOR 4 WEEKS UNLESS OTHERWISE DIRECTED. THIS IS YOUR BLOOD THINNER. * HIGH RISK PATIENTS MAY BE PRESCRIBED A STRONGER BLOOD THINNER. THIS WILL BE PROVIDED AT DISCHARGE. * CALL IF INCREASED PAIN, REDNESS, DRAINAGE OR FEVER GREATER THAT 101. * WEAR BRENNAN HOSE 20 HOURS PER DAY FOR 2 WEEKS. * RENETTA Dressing- This is a large suction dressing covering your incision. This will help pull any excess drainage from the wound and allow your incision to heal properly. You may shower with this if you can keep the unit outside of the shower. If any bleeding or leakage is noted please call your doctor's office. This will remain on your incision for 7 days and then should be removed. This can be done yourself or by the home nursing staff if applicable. The entire unit is disposable once removed. Once removed, keep incision clean and dry. If redness or drainage is noted, please call your surgeon. IF INCISION IS LEAKING THROUGH DRESSING, CALL THE OFFICE . FOLLOW UP VISIT: If appointment is not already scheduled: Please call [facility] to make a follow-up appointment for 2 weeks after your surgery at . Stand-Alone Forms: My [facility], Smoking Cessation Medications and DC Order Prescriptions: New acetaminophen 500 mg Tablet 1,000 mg PO Q8 14 Days Qty: 84 RF: 0 Xarelto 10 mg Tablet 10 mg PO DAILY 30 Days Qty: 30 RF: 0 polyethylene glycol 3350 [Miralax] 17 gram powder in packet 17 g PO DAILY PRN (Reason: constipation) Qty: 5 RF: 0 cefadroxil 500 mg capsule 500 mg PO BID Qty: 14 RF: 0 oxycodone 5 mg Tablet 5 mg PO Q4H MDD 6 PRN (Reason: pain) Qty: 30 RF: 0 Continued multivitamin Tablet 1 tab PO QAM RF: 0 hydrochlorothiazide 50 mg Tablet 12.5 mg PO QAM RF: 0 simvastatin 40 mg Tablet 40 mg PO HS RF: 0 levothyroxine 75 mcg Tablet 88 mcg PO QAM RF: 0 vitamin B complex Tablet 1 tab PO QAM RF: 0 bupropion HCl 150 mg Tablet Extended Release 24 Hr 150 mg PO QAM RF: 0 Discontinued Kermit 3 Fish Oil Capsule 1,000 mg PO QAM RF: 0 tramadol 50 mg Tablet 50 mg PO DAILY PRN (Reason: Pain) RF: 0 ibuprofen 200 mg Tablet 200 mg PO BID PRN (Reason: Pain) RF: 0 acetaminophen [Tylenol] 325 mg Tablet 650 mg PO QID PRN (Reason: Pain) RF: 0 Discharge Orders: Discharge Order (Routine); Ordered 07/16/20 Ordered By: Rajesh Turner/Other Patient Handouts: Prediabetes, 5 Steps for Eating Healthier, A1C Admission Data Admit Date/Time: 07/15/20 09:15 Attending Provider: James hCavis Admit Provider: James Chavis Primary Care Provider: James Fernandez Other Providers: Alex Vanegas Other Interventions: Discharge Summary Assessment (RN) Last Done: 07/16/20 10:29
== END 2020-07-16 13:10 | disposition home health service (06) ==
LOC: 3E 05:15 → ASU 05:15